=== PATIENT | female | born 1945 | race Caucasian/White ===

== ENCOUNTER 2017-08-16 07:58 | Emergency (ER) | payer MEDICARE, OTHER ==
[2017-08-16] MEDS: DIPHTH/TET/ACEL PERTUSS (ADULT) 0.5 ML VIAL IM* (09:35)
[2017-08-16] MEDS: AMOXICILLIN/CLAV 500 MG TAB PO (09:42)
== END 2017-08-16 10:05 | disposition home or self-care (01) ==
LOC: FTE 07:58
DX: S51.811A Laceration without foreign body of right forearm, initial encounter (principal); W54.0XXA Bitten by dog, initial encounter; Y92.9 Unspecified place or not applicable; Z23 Encounter for immunization
CPT/HCPCS: 90471; 90715; 99283-25